=== PATIENT | female | born 1980 | race African-American/Black ===

== ENCOUNTER 2019-12-18 17:56 | Emergency (ER) | payer MEDICAID ==
[~2019-12-18] VITALS: Ht 160 cm; Wt 55.0 kg
[2019-12-18] MEDS ORDERED: LORAZEPAM 2MG/ML CPJ IM ONE (18:15)
[2019-12-18] MEDS ORDERED: HALOPERIDOL LACTATE 5MG/ML VIAL IM ONE (18:15)
[2019-12-18 19:28] LABS: BASOPHILS % 0.6 % (0.0-2.0); EOSINOPHILS % 0.6 % (0.0-5.0); HEMATOCRIT. 28.8 % (36.0-48.0); HEMOGLOBIN. 8.7 g/dL (12.0-16.0); LYMPHOCYTES % 28.5 % (20.0-50.0); MEAN CORPUSCULAR HEMOGLOBIN 19.2 pg (28.0-32.0); MEAN CORPUSCULAR VOLUME 63.3 fL (81.0-99.0); MEAN PLATELET VOLUME 6.2 fl (7.4-10.4); MONOCYTES % 8.2 % (2.0-8.0); NEUTROPHILS % 62.1 % (40.0-76.0); PLATELET 404 x1000/uL (130-400); RED BLOOD CELL COUNT 4.54 mill/uL (4.2-5.4); RED CELL DISTRIBUTION WIDTH 18.2 % (11.6-14.6)
[2019-12-18 19:36] LABS: CHLORIDE 108 mEq/L (98-107)
[2019-12-18 19:41] LABS: ETHANOL BLOOD 149 mg/dL
[2019-12-18 20:20] LABS: PLATELET ESTIMATE SLIGHTLY INCREASED
[2019-12-19] MEDS ORDERED: POTASSIUM CHLORIDE 20MEQ TABLET SR PO ONE (05:15)
[2019-12-19 05:35] VITALS: BP 113/59
== END 2019-12-19 05:59 | disposition home or self-care (01) ==
LOC: ER 17:56
DX: F19.10 Other psychoactive substance abuse, uncomplicated (principal); R45.1 Restlessness and agitation; F31.9 Bipolar disorder, unspecified; F20.9 Schizophrenia, unspecified
CPT/HCPCS: 36415; 80048; 80320; 82962; 85025; 96372; 99285; J1630; J2060; G0480

== ENCOUNTER 2020-05-14 13:12 | Emergency (ER) | payer MEDICAID ==
[~2020-05-14] VITALS: Ht 162.6 cm; Wt 65.0 kg
[2020-05-14] MEDS ORDERED: ACETAMINOPHEN 325MG TABLET PO ONE (14:00)
[2020-05-14 14:44] VITALS: BP 126/71
== END 2020-05-14 15:07 | disposition home or self-care (01) ==
LOC: ER 13:21
DX: T50.901A Poisoning by unspecified drugs, medicaments and biological substances, accidental (unintentional), initial encounter (principal); F12.10 Cannabis abuse, uncomplicated; F15.10 Other stimulant abuse, uncomplicated; F20.9 Schizophrenia, unspecified; F31.9 Bipolar disorder, unspecified; F16.10 Hallucinogen abuse, uncomplicated; Y92.89 Other specified places as the place of occurrence of the external cause
CPT/HCPCS: 99283

== ENCOUNTER 2020-05-30 16:06 | Emergency (ER) | payer MEDICAID ==
[~2020-05-30] VITALS: Ht 167.6 cm; Wt 50.0 kg
[2020-05-30] MEDS ORDERED: SODIUM CHLORIDE 0.9% 1,000 ML IV ONE (16:45)
[2020-05-30 17:43] LABS: BASOPHILS % 3.2 % (0.0-2.0); EOSINOPHILS % 1.7 % (0.0-5.0); HEMATOCRIT. 33.9 % (36.0-48.0); HEMOGLOBIN. 10.5 g/dL (12.0-16.0); LYMPHOCYTES % 34.1 % (20.0-50.0); MEAN CORPUSCULAR HEMOGLOBIN 19.9 pg (28.0-32.0); MEAN CORPUSCULAR VOLUME 64.4 fL (81.0-99.0); MEAN PLATELET VOLUME 6.3 fl (7.4-10.4); MONOCYTES % 8.2 % (2.0-8.0); NEUTROPHILS % 52.8 % (40.0-76.0); PLATELET 431 x1000/uL (130-400); RED BLOOD CELL COUNT 5.26 mill/uL (4.2-5.4); RED CELL DISTRIBUTION WIDTH 19.2 % (11.6-14.6)
[2020-05-30 17:47] LABS: CHLORIDE 107 mEq/L (98-107)
[2020-05-30 17:51] LABS: ETHANOL BLOOD 47 mg/dL
[2020-05-30 17:52] LABS: CLARITY URINE CLEAR (CLEAR); COLOR URINE YELLOW (YELLOW); KETONES URINE TRACE (NEGATIVE); LEUKOCYTE ESTERASE URINE NEGATIVE (NEGATIVE); NITRITE URINE NEGATIVE (NEGATIVE); OCCULT BLOOD URINE NEGATIVE (NEGATIVE); PROTEIN URINE NEGATIVE (NEGATIVE); SPECIFIC GRAVITY URINE 1.023 (1.005-1.030); UROBILINOGEN URINE 0.2 E.U./dL (0.2-1.0)
[2020-05-30 17:54] LABS: HCG SCREEN NEGATIVE
[2020-05-30 18:05] LABS: *BARBITURATES SCREEN URINE NEGATIVE (NEGATIVE)
[2020-05-30 18:06] LABS: METHADONE URINE SCREEN NEGATIVE (NEGATIVE); OPIATES URINE SCREEN NEGATIVE (NEGATIVE)
[2020-05-30 18:07] LABS: *AMPHETAMINES SCREEN URINE PRESUMTIVE POSITIVE (NEGATIVE); *BENZODIAZEPINES SCREEN URINE PRESUMTIVE POSITIVE (NEGATIVE); *COCAINE SCREEN URINE PRESUMTIVE POSITIVE (NEGATIVE); CANNABINOID URINE SCREEN PRESUMTIVE POSITIVE (NEGATIVE); PHENCYCLIDINE URINE SCREEN PRESUMTIVE POSITIVE (NEGATIVE)
[2020-05-30 18:15] LABS: PLATELET ESTIMATE INCREASED
[2020-05-30] MEDS ORDERED: HALOPERIDOL LACTATE 5MG/ML VIAL IM ONE (23:00)
[2020-05-30] MEDS ORDERED: LORAZEPAM 2MG/ML CPJ IM ONE (23:00)
[2020-05-31 10:34] VITALS: BP 145/82
== END 2020-05-31 10:35 | disposition home or self-care (01) ==
LOC: ER 16:06
DX: T40.991A Poisoning by other psychodysleptics [hallucinogens], accidental (unintentional), initial encounter (principal); T40.5X1A Poisoning by cocaine, accidental (unintentional), initial encounter; T43.621A Poisoning by amphetamines, accidental (unintentional), initial encounter; G92 Toxic encephalopathy; R41.82 Altered mental status, unspecified; R41.0 Disorientation, unspecified; R45.1 Restlessness and agitation; F17.200 Nicotine dependence, unspecified, uncomplicated; F31.9 Bipolar disorder, unspecified; F20.9 Schizophrenia, unspecified; I49.9 Cardiac arrhythmia, unspecified; Z20.822 Contact with and (suspected) exposure to COVID-19; Y92.89 Other specified places as the place of occurrence of the external cause
CPT/HCPCS: 36415; 70450; 80053; 80305; 80320; 81003; 84703; 85025; 87426; 93005; 96360; 96372; 99285; J1630; J2060; J7030; G0480

== ENCOUNTER 2020-07-25 12:59 | Emergency (ER) | payer MEDICAID, OTHER ==
[~2020-07-25] VITALS: Ht 165.1 cm; Wt 70.0 kg
[2020-07-25] MEDS ORDERED: TETANUS AND DIPHTHERIA TOX/PF 0.5ML SYR (ADULT) IM ONE (13:30)
[2020-07-25] MEDS ORDERED: LORAZEPAM 2MG/ML CPJ IM ONE (14:15)
[2020-07-25 15:20] VITALS: BP 142/75
== END 2020-07-25 15:49 ==
LOC: ER 12:59
DX: S01.01XA Laceration without foreign body of scalp, initial encounter (principal); X99.9XXA Assault by unspecified sharp object, initial encounter; Y93.89 Activity, other specified; Y92.89 Other specified places as the place of occurrence of the external cause; R03.0 Elevated blood-pressure reading, without diagnosis of hypertension
CPT/HCPCS: 12001; 70450; 72125; 81025; 90714; 96372; 99285; A4217; J2060; Z7610; 12002

== ENCOUNTER 2021-01-22 13:38 | Emergency (ER) | payer MEDICAID, OTHER ==
[~2021-01-22] VITALS: Ht 170.2 cm; Wt 64.0 kg
[2021-01-22] MEDS ORDERED: IBUPROFEN 400MG TABLET PO ONE (14:30)
[2021-01-22] MEDS ORDERED: ACETAMINOPHEN 325MG TABLET PO ONE (14:30)
[2021-01-22] MEDS ORDERED: BACITRACIN 15GM TUBE TOP ONE (14:30)
[2021-01-22] MEDS ORDERED: KETOROLAC 60MG/2ML VIAL IM ONE (15:45)
[2021-01-22 16:18] VITALS: BP 146/88
[2021-01-22] MEDS ORDERED: IBUP-2028 MT (16:38)
[2021-01-22] MEDS ORDERED: TOPUD PO (16:38)
== END 2021-01-22 16:40 | disposition home or self-care (01) ==
LOC: ER 13:47
DX: M25.511 Pain in right shoulder (principal); F31.9 Bipolar disorder, unspecified; F20.9 Schizophrenia, unspecified; F12.10 Cannabis abuse, uncomplicated; F15.10 Other stimulant abuse, uncomplicated
CPT/HCPCS: 96372; 99283; J1885; Z7610

== ENCOUNTER 2021-09-01 20:56 | Emergency (ER) | payer MEDICAID, OTHER ==
[~2021-09-01 20:56] MED LIST: IBUP-2028 MT; TOPUD PO
== END 2021-09-01 22:32 | disposition left against medical advice (07) ==
LOC: ER 20:56
DX: Z53.21 Procedure and treatment not carried out due to patient leaving prior to being seen by health care provider (principal)

== ENCOUNTER 2022-08-28 10:30 | Emergency (ER) | payer OTHER ==
[~2022-08-28] VITALS: Ht 172.7 cm; Wt 64.0 kg
[2022-08-28 10:34] VITALS: O2SAT 99
[2022-08-28 11:19] LABS: EOSINOPHILS % 2.2 % (0.0-5.0); HEMATOCRIT. 31.8 % (36.0-48.0); HEMOGLOBIN. 10.1 g/dL (12.0-16.0); LYMPHOCYTES % 22.1 % (20.0-50.0); MEAN CORPUSCULAR HEMOGLOBIN 23.5 pg (28.0-32.0); MEAN CORPUSCULAR VOLUME 74.1 fL (81.0-99.0); MEAN PLATELET VOLUME 6.2 fl (7.4-10.4); MONOCYTES % 8.1 % (2.0-8.0); NEUTROPHILS % 66.6 % (40.0-76.0); PLATELET 365 x1000/uL (130-400); RED CELL DISTRIBUTION WIDTH 18.4 % (11.6-14.6)
[2022-08-28 11:33] LABS: HCG SCREEN NEGATIVE
[2022-08-28 11:52] LABS: CHLORIDE 110 mEq/L (98-107); ETHANOL BLOOD 87 mg/dL (-10)
[2022-08-28 12:06] LABS: CREATINE KINASE 387 IU/L (26-192)
[2022-08-28] MEDS ORDERED: POTASSIUM CHLORIDE 20MEQ TABLET SR PO ONE (12:15)
[2022-08-28] MEDS ORDERED: POTASSIUM CHLORIDE 20MEQ TABLET SR PO NR (18:00)
[2022-08-29] MEDS: FLUOXETINE HCL 10 MG CAPSULE PO SCH ×2 (10:45→11:31)
[2022-08-29 21:09] LABS: CLARITY URINE CLEAR (CLEAR); COLOR URINE YELLOW (YELLOW); KETONES URINE NEGATIVE (NEGATIVE); LEUKOCYTE ESTERASE URINE TRACE (NEGATIVE); NITRITE URINE NEGATIVE (NEGATIVE); OCCULT BLOOD URINE NEGATIVE (NEGATIVE); PROTEIN URINE NEGATIVE (NEGATIVE)
[2022-08-29 21:34] LABS: *BARBITURATES SCREEN URINE NEGATIVE (NEGATIVE); *BENZODIAZEPINES SCREEN URINE NEGATIVE (NEGATIVE); METHADONE URINE SCREEN NEGATIVE (NEGATIVE); OPIATES URINE SCREEN NEGATIVE (NEGATIVE)
[2022-08-29 21:43] LABS: *AMPHETAMINES SCREEN URINE PRESUMTIVE POSITIVE (NEGATIVE); *COCAINE SCREEN URINE PRESUMTIVE POSITIVE (NEGATIVE); CANNABINOID URINE SCREEN PRESUMTIVE POSITIVE (NEGATIVE); PHENCYCLIDINE URINE SCREEN PRESUMTIVE POSITIVE (NEGATIVE)
[2022-08-30] MEDS ORDERED: ACETAMINOPHEN 325MG TABLET PO ONE (09:15)
[2022-08-30] MEDS ORDERED: ACETAMINOPHEN 325MG TABLET PO NR (11:00)
[2022-08-30] MEDS ORDERED: IBUPROFEN 400MG TABLET PO ONE (17:30)
[2022-08-30] MEDS ORDERED: TRAZODONE HCL 50MG TABLET PO SCH (21:00)
[2022-08-31 02:22] VITALS: BP 124/68; PULSE 66; RESP 16; TEMP 97.5
== END 2022-08-31 02:40 ==
LOC: ER 10:30
DX: R45.851 Suicidal ideations (principal); F12.10 Cannabis abuse, uncomplicated; F15.10 Other stimulant abuse, uncomplicated; F16.10 Hallucinogen abuse, uncomplicated; Z20.822 Contact with and (suspected) exposure to COVID-19; Z86.59 Personal history of other mental and behavioral disorders
CPT/HCPCS: 80053; 80305; 81003; 80307; 80329; 80320; 82550; 84703; 83690; 84443; 85025; 84484; 36415; 99285; 87426; C9803; 99283; G0480

== ENCOUNTER 2022-09-12 07:22 | Emergency (ER) | payer OTHER ==
[~2022-09-12] VITALS: Ht 165.1 cm; Wt 50.0 kg
[2022-09-12 07:25] VITALS: BP 120/69; PULSE 68; RESP 18; TEMP 98.4; O2SAT 98
[2022-09-12] MEDS ORDERED: ONDANSETRON HCL 4MG/2ML INJ IV STA (07:51)
[2022-09-12] MEDS ORDERED: SODIUM CHLORIDE 0.9% 1,000 ML IV ONE (08:00)
[2022-09-12 08:44] LABS: CHLORIDE 108 mEq/L (98-107)
[2022-09-12 08:53] LABS: ETHANOL BLOOD 236 mg/dL (-10)
== END 2022-09-12 09:10 | disposition home or self-care (01) ==
LOC: ER 07:22
DX: F10.129 Alcohol abuse with intoxication, unspecified (principal); Z86.59 Personal history of other mental and behavioral disorders; Y90.7 Blood alcohol level of 200-239 mg/100 ml
CPT/HCPCS: 80053; 80320; 36415; 99283; J7030; Z7610; G0480